=== PATIENT | male | born 1945 | race Caucasian/White ===

== ENCOUNTER 2021-07-10 08:41 | Inpatient (IN) | payer OTHER ==
[~2021-07-10] VITALS: Ht 195.6 cm; Wt 81.2 kg
--- NOTE | 2021-07-10 08:45 | NUR ---
REceved pt 76 yrs male came by pramdic awake and alert fallow command respiration spont and easy skin warm and dry c/o dizzness this morning EKG DONE seen by DR Walden
--- NOTE | 2021-07-10 08:47 | NUR ---
PT UNABLE TO PROVIDE URINE SAMPLE AT THIS TIME, URINAL PROVIDED AT BEDSIDE. WILL ENCOURAGE PT TO TRY AGAIN LATER.
[2021-07-10] MEDS ORDERED: IV NS 0.9% 500 ML BAG IV ONE (09:00)
[2021-07-10] MEDS ORDERED: DULO30CA52 PO (09:10)
[2021-07-10] MEDS ORDERED: BENA10TA74 PO (09:10)
[2021-07-10] MEDS ORDERED: AMLO-212 PO (09:10)
[2021-07-10] MEDS ORDERED: TERA10CA4 PO (09:10)
[2021-07-10] MEDS ORDERED: MIRT7.5T10 PO (09:10)
--- NOTE | 2021-07-10 09:17 | NUR ---
RAPID COVID TEST COLLECTED AND SENT
--- NOTE | 2021-07-10 09:17 | NUR ---
LAB AT BEDSIDE
--- NOTE | 2021-07-10 09:32 | NUR ---
blood drow by lab tach Ct scan was done
[2021-07-10 09:42] LABS: BASOPHILS # (AUTO) 0.1 K/uL (0.0-0.2); BASOPHILS % (AUTO) 0.8 % (0.0-2.0); EOSINOPHILS % (AUTO) 1.4 % (0.0-6.0); HEMATOCRIT 43 % (39-51); HEMOGLOBIN 14.3 g/dL (13.5-17.5); LYMPHOCYTES # (AUTO) 1.3 K/uL (0.8-4.8); LYMPHOCYTES % (AUTO) 16.1 % (20.0-44.0); MEAN CORPUSCULAR HGB CONC 33 g/dl (31.0-36.0); MEAN CORPUSCULAR VOLUME 92 fL (80-96); MONOCYTES # (AUTO) 0.7 K/uL (0.1-1.30); MONOCYTES % (AUTO) 9.1 % (2.0-12.0); NEUTROPHILS # (AUTO) 5.9 K/uL (1.8-8.9); NEUTROPHILS % (AUTO) 72.6 % (43.0-81.0); PLATELET COUNT (AUTO) 193 K/uL (150-450); RED BLOOD CELL COUNT(AUTO) 4.69 MIL/uL (4.5-6.0)
[2021-07-10 10:07] LABS: ALANINE AMINOTRANSFERASE 13 U/L (12-78); ALBUMIN 3.4 g/dL (3.4-5.0); ALKALINE PHOSPHATASE 57 U/L (46-116); ASPARTATE AMINOTRANSFERASE 12 U/L (15-37); BILIRUBIN,DIRECT 0.2 mg/dL (0.0-0.2); BILIRUBIN,TOTAL 0.8 mg/dL (0.2-1.0); CALCIUM, SERUM 9.2 mg/dL (8.5-10.1); CARBON DIOXIDE 28 mmol/L (21-32); CHLORIDE 107 mmol/L (98-107); GLUCOSE 136 mg/dL (74-106); POTASSIUM 3.2 mmol/L (3.5-5.1); SODIUM SERUM 148 mmol/L (136-145); TOTAL PROTEIN, SERUM 7.1 g/dL (6.4-8.2); UREA NITROGEN, BLOOD 15 mg/dL (7-18)
--- NOTE | 2021-07-10 10:18 | NUR ---
URINE WAS COLLECTED AND SENT
[2021-07-10 10:35] LABS: BILIRUBIN,URINE MODERATE (NEGATIVE); COLOR,URINE YELLOW (YELLOW); LEUKOCYTE ESTERASE ,URINE NEGATIVE (NEGATIVE); NITRITE, URINE NEGATIVE (NEGATIVE); PROTEIN,URINE 30 mg/dl (NEGATIVE); UGLUCOSE NEGATIVE (NEGATIVE)
--- NOTE | 2021-07-10 10:39 | NUR ---
ADMITTING DEPARTMENT CALLED [facility] SINCE [phone] TODAY AND WAS NOTIFIED THAT THE INSURANCE GROUP HAS NOT BEEN ANSWERING THE MESSAGES. AWAITING TILL 1099 FOR AUTHORIZATION
[2021-07-10 10:59] LABS: WBC,URINE NONE SEEN /HPF (0-3)
[2021-07-10 11:00] LABS: BACTERIA,URINE Rare /HPF (None Seen); RBC,URINE 0-2 /HPF (0-2); SQUAMOUS EPITHELIAL CELL,UR None Seen /HPF (None Seen)
[2021-07-10 11:01] LABS: CALCIUM OXALATE CRYSTALS,UR Rare /HPF (None Seen)
--- NOTE | 2021-07-10 11:43 | NUR ---
CALLED NURSING SUP REGARDING PT BED
--- NOTE | 2021-07-10 12:39 | NUR ---
wating for lab result resting no dizzness noted
--- NOTE | 2021-07-10 13:17 | NUR ---
ivf infution and patent no chest pain no dizzness elevated HOB 45@
[2021-07-10] MEDS ORDERED: IV D5W 1,000 ML IV PRN (13:30)
[2021-07-10] MEDS ORDERED: ONDANSETRON HCL/PF 4 MG/2 ML VIAL IVP PRN (13:30)
[2021-07-10] MEDS ORDERED: MAGNESIUM HYDROXIDE 30 ML UDC PO PRN (13:30)
--- NOTE | 2021-07-10 14:26 | NUR ---
hosptalist here see and examin pt spook with admition order was given
--- NOTE | 2021-07-10 16:16 | NUR ---
wating for room vs stable no govea no pain noted
[2021-07-10] MEDS ORDERED: Z GUARD REMEDY 4 OZ OINT TP PRN (17:00)
[2021-07-10] MEDS ORDERED: POTASSIUM CHLORIDE 10 MEQ TABLET.SA PO ONE (17:00)
[2021-07-10] MEDS: PANTOPRAZOLE 40 MG TABLET.DR PO SCH (17:01)
[2021-07-10] MEDS ORDERED: POTASSIUM CHLORIDE 10 MEQ TABLET.SA ONE (17:01)
[2021-07-10] MEDS ORDERED: PANTOPRAZOLE 40 MG TABLET.DR PO ONE (17:18)
[2021-07-10] MEDS: IV NS 0.9% 1,000 ML IV PRN ×2 (18:00→19:32)
--- NOTE | 2021-07-10 18:30 | NUR ---
pt no voiding no post bladder resdule checked
--- NOTE | 2021-07-10 19:00 | NUR ---
orth static done pt week unable to stand up for standing postion
--- NOTE | 2021-07-10 19:27 | NUR ---
Hand off to SHIRLEY RN AT BED SIDE
--- NOTE | 2021-07-10 19:47 | NUR ---
RECEIVED REPORT FROM QIAN PEARL FOR MYNOR
--- NOTE | 2021-07-10 19:48 | NUR ---
PT IS RESTING COMFORTABLY IN BED, PROVIDED WARM BLANKET. WILL CONTINUE TO MONITOR
--- NOTE | 2021-07-10 19:55 | NUR ---
REPORT GIVEN TO HAO
--- NOTE | 2021-07-10 20:16 | NUR ---
TRANSFERRED TO THIRD FLOOR UNDER ACLS
--- NOTE | 2021-07-10 21:00 | NUR ---
RN ADMITTING NOTE PATIENT ADMITTED FROM ER, REPORT RECEIVED FROM TERRENCE. PER PATIENT, HE'S HERE BECAUSE HE FELL THIS MORNING. PATIENT ADMITTED FOR SYNCOPE, AMS, AND ABNORMAL EKG. PATIENT IS A/O X 2-3 AT THIS TIME. PATIENT IS HARD OF HEARING ON BOTH R AND L EARS, DOES NOT WEAR ANY HEARING AIDS. PATIENT HAS A LAC 18 G PATENT AND INTACT RUNNING NS AT 100 ML/HR. PATIENT'S TELE MONITOR READS SR 86 BPM SR WITH PAC AND INVERTED T WAVE. PATIENT CANNOT DECIDE REGARDING HIS CODE STATUS AND WOULD LIKE FOR HIS MILDRED ([phone]) TO DECIDE. WISHES PATIENT TO BE FULL CODE. ALSO STATES THAT PATIENT HAS NOT BEEN EATING WELL AND LOST WEIGHT AND WITH INCREASED CONFUSED SINCE [place] MAY 2021 HOSPITALIZATION. PER , PATIENT ALSO HAS NOT BEEN URINATING AND HAS BEEN HAVING A LOT OF PAIN D/T PATIENT HOLDING IN URINE. WILL ASSESS PATIENT'S URINATION AND BOWEL PATTERNS. PATIENT DOES NOT HAVE ANY COVID VACCINATIONS AND DOES NOT WANT ANY IMMUNIZATIONS AT THIS TIME. PATIENT DOES NOT WANT TO WEAR PATIENT GOWN, SKIN INTACT. ORIENTED PATIENT TO RM, RN , AND INVESTMENT ACCOUNTING CLERK. BED LOCKED AND IN LOWEST POSITION. CALL LIGHT WITHIN REACH, SIDE RAILS UP, BED ALARM ON. WILL MONITOR PATIENT CLOSELY.
[2021-07-10 21:10] VITALS: BP 159/90
[2021-07-11] VITALS: BP 156/81
--- NOTE | 2021-07-11 | NUR ---
ORTHOSTATIC BP SUPINE: BP 156/81 HR 84 SITTING: BP 145/85 HR 86 STANDIN/73 HR 103 Addendum: 07/11/21 at 0350 by DIANNE MORSE RN NO DIZZINESS REPORTED BY PATIENT.
--- NOTE | 2021-07-11 04:00 | NUR ---
BLADDER SCAN 220, VOID 200 ML, PVR 34
[2021-07-11 05:09] VITALS: BP 164/90
[2021-07-11 06:29] LABS: BASOPHILS # (AUTO) 0.1 K/uL (0.0-0.2); BASOPHILS % (AUTO) 0.9 % (0.0-2.0); EOSINOPHILS % (AUTO) 3.4 % (0.0-6.0); HEMATOCRIT 38 % (39-51); HEMOGLOBIN 12.9 g/dL (13.5-17.5); LYMPHOCYTES # (AUTO) 1.7 K/uL (0.8-4.8); LYMPHOCYTES % (AUTO) 25.9 % (20.0-44.0); MEAN CORPUSCULAR HGB CONC 34 g/dl (31.0-36.0); MEAN CORPUSCULAR VOLUME 92 fL (80-96); MONOCYTES # (AUTO) 0.6 K/uL (0.1-1.30); MONOCYTES % (AUTO) 9.8 % (2.0-12.0); PLATELET COUNT (AUTO) 169 K/uL (150-450); RED BLOOD CELL COUNT(AUTO) 4.17 MIL/uL (4.5-6.0); WHITE BLOOD COUNT (AUTO) 6.6 K/uL (4.3-11.0)
[2021-07-11] MEDS: IV NS 0.9% 1,000 ML IV PRN (06:54)
[2021-07-11 07:14] LABS: CALCIUM, SERUM 8.9 mg/dL (8.5-10.1); CREATININE 0.8 mg/dL (0.6-1.3); MAGNESIUM 1.8 mg/dL (1.8-2.4); PHOSPHORUS 2.8 mg/dL (2.5-4.9); POTASSIUM 3.1 mmol/L (3.5-5.1)
--- NOTE | 2021-07-11 07:25 | NUR ---
RN OPENING NOTE RECEIVED PATIENT RESTING IN BED. PATIENT IS A/O X 2-3 AT THIS TIME. PATIENT IS HARD OF HEARING ON BOTH R AND L EARS, DOES NOT WEAR ANY HEARING AIDS. PATIENT IS BREATHING EVENLY AND NONLABORED ON ROOM AIR. PATIENT HAS A LAC 18 G PATENT AND INTACT RUNNING NS AT 100 ML/HR. PATIENT'S TELE MONITOR READS SR 86 BPM SR WITH PAC AND INVERTED T WAVE. SAFETY MEASURES IN PLACE BED LOCKED AND IN LOWEST POSITION. CALL LIGHT WITHIN REACH, SIDE RAILS UP, BED ALARM ON. WILL CONTINUE TO MONITOR PATIENT
[2021-07-11] MEDS: PANTOPRAZOLE 40 MG TABLET.DR PO SCH (07:38)
[2021-07-11 08:00] VITALS: BP 151/84
[2021-07-11 08:34] LABS: THYROID STIMULATING HORMONE 2.425 uIU/mL (0.358-3.74)
[2021-07-11] MEDS: AMLODIPINE BESYLATE 5 MG TABLET PO SCH (09:19)
[2021-07-11] MEDS: POTASSIUM CHLORIDE 20 MEQ TAB.PRT.SR PO SCH ×2 (10:03→11:28)
[2021-07-11 16:00] VITALS: BP 164/88
[2021-07-11] MEDS: TERAZOSIN HCL 5 MG CAPSULE PO SCH (17:18)
--- NOTE | 2021-07-11 18:35 | NUR ---
RN CLOSING NOTE PATIENT RESTING IN BED. PATIENT IS A/O X 2-3 AT THIS TIME. PATIENT IS HARD OF HEARING ON BOTH R AND L EARS, DOES NOT WEAR ANY HEARING AIDS. PATIENT IS BREATHING EVENLY AND NONLABORED ON ROOM AIR. PATIENT HAS A LAC 18 G PATENT AND INTACT RUNNING NS AT 100 ML/HR. PATIENT'S TELE MONITOR READS SR 86 BPM SR WITH PAC AND INVERTED T WAVE. ALL MEDICATIONS GIVEN ORDERED. SAFETY MEASURES IN PLACE BED LOCKED AND IN LOWEST POSITION. CALL LIGHT WITHIN REACH, SIDE RAILS UP, BED ALARM ON. WILL ENDORSE TO ONCOMING SHIFT
--- NOTE | 2021-07-11 19:22 | NUR ---
RN OPENING NOTE PATIENT LAYING IN BED, ABLE TO MAKE NEEDS KNOWN. PATIENT IS A/O X 2-3 AT THIS TIME. PATIENT IS HARD OF HEARING ON BOTH R AND L EARS. PATIENT ON RA, TOLERATING WELL, BREATHING EVEN AND UNLABORED. PATIENT HAS A LAC 18 G PATENT AND INTACT, SALINE LOCKED AT THIS TIME. PATIENT DOES NOT WANT IVF RUNNING AT THIS TIME. PATIENT IS DRINKING FLUIDS WELL. PATIENT'S TELE MONITOR READS SR 90 BPM SR WITH PAC AND INVERTED T WAVE. SAFETY MEASURES IN PLACE BED LOCKED AND IN LOWEST POSITION. CALL LIGHT WITHIN REACH, SIDE RAILS UP, BED ALARM ON. WILL CONTINUE TO MONITOR PATIENT
[2021-07-11 20:00] VITALS: BP 151/94
[2021-07-12] VITALS: BP 158/91
--- NOTE | 2021-07-12 07:18 | NUR ---
RN CLOSING NOTE PATIENT LAYING IN BED, ABLE TO MAKE NEEDS KNOWN. PATIENT IS A/O X 2-3, WITH PERIODS OF CONFUSION THROUGHOUT THE SHIFT. PATIENT IS HARD OF HEARING ON BOTH R AND L EARS. PATIENT ON RA, TOLERATING WELL, BREATHING EVEN AND UNLABORED. PATIENT HAS A LAC 18 G PATENT AND INTACT, SALINE LOCKED AT THIS TIME. PATIENT DOES NOT WANT IVF RUNNING HE FEELS THAT THERE IS "PRESSURE" AND DOES NOT LIKE THE FEELING, PATIENT STATES THAT THERE IS NO PAIN ON IV SITE. PATIENT IS DRINKING FLUIDS WELL. PATIENT'S TELE MONITOR READS SR 70 BPM SR WITH PAC AND INVERTED T WAVE. SAFETY MEASURES IN PLACE BED LOCKED AND IN LOWEST POSITION. CALL LIGHT WITHIN REACH, SIDE RAILS UP, BED ALARM ON. ALL NEEDS MET AND ATTENDED. ALL ORDERS CARRIED OUT. ENDORSED TO DAY SHIFT NURSE FOR MYNOR.
[2021-07-12 08:00] VITALS: BP 152/84
[2021-07-12] MEDS: PANTOPRAZOLE 40 MG TABLET.DR PO SCH (09:27)
[2021-07-12] MEDS: AMLODIPINE BESYLATE 5 MG TABLET PO SCH (09:27)
[2021-07-12 12:00] VITALS: BP 148/77
[2021-07-12 12:44] LABS: BASOPHILS % (AUTO) 0.6 % (0.0-2.0); EOSINOPHILS % (AUTO) 4.5 % (0.0-6.0); HEMATOCRIT 42 % (39-51); HEMOGLOBIN 14.4 g/dL (13.5-17.5); LYMPHOCYTES # (AUTO) 1.9 K/uL (0.8-4.8); LYMPHOCYTES % (AUTO) 24.9 % (20.0-44.0); MEAN CORPUSCULAR HGB CONC 34 g/dl (31.0-36.0); MEAN CORPUSCULAR VOLUME 92 fL (80-96); MONOCYTES # (AUTO) 0.6 K/uL (0.1-1.30); MONOCYTES % (AUTO) 8.4 % (2.0-12.0); NEUTROPHILS # (AUTO) 4.7 K/uL (1.8-8.9); NEUTROPHILS % (AUTO) 61.6 % (43.0-81.0); PLATELET COUNT (AUTO) 176 K/uL (150-450); RED BLOOD CELL COUNT(AUTO) 4.61 MIL/uL (4.5-6.0); WHITE BLOOD COUNT (AUTO) 7.7 K/uL (4.3-11.0)
[2021-07-12 13:12] LABS: CREATININE 0.9 mg/dL (0.6-1.3); POTASSIUM 3.2 mmol/L (3.5-5.1)
--- NOTE | 2021-07-12 13:33 | NUR ---
VERBALIZING INAPPROPRIATE THINGS,VERY CONFUSED.
[2021-07-12 13:46] LABS: PREALBUMIN 19.3 MG/DL (18.0-35.7)
[2021-07-12] MEDS ORDERED: POTASSIUM CHLORIDE 20 MEQ TAB.PRT.SR PO ONE (14:00)
--- NOTE | 2021-07-12 14:19 | NUR ---
GIVEN KDUR 40 MEQ.PO FOR 3.2 POTASSIUM LEVEL.
--- NOTE | 2021-07-12 15:27 | NUR ---
rn dialed 's number for pt.very confused.
--- NOTE | 2021-07-12 15:31 | NUR ---
bed alarm set continually,though pt. dislikes.
[2021-07-12 16:00] VITALS: BP 136/79
--- NOTE | 2021-07-12 16:00 | NUR ---
rn spoke with and given no. of dr. ramires,although rn gave status report on pt.
--- NOTE | 2021-07-12 16:29 | NUR ---
refusing iv fluids.
[2021-07-12] MEDS: TERAZOSIN HCL 5 MG CAPSULE PO SCH (17:53)
--- NOTE | 2021-07-12 19:35 | NUR ---
TELE OPENING NOTES RECEIVED PATIENT LAYING AWAKE IN BED. A/O X2-3. PATIENT WITH REGULAR AND UNLABORED BREATHING ON ROOM AIR TOLERATED WELL. NO SIGNS AND SYMPTOMS OF DISTRESS NOTED AT THIS TIME. NO COMPLAINS OF PAIN OR DISCOMFORT AT THIS TIME. PATIENT ON TELE MONITOR READING SR WITH INVERTED T WAVE @ 85 BPM. IV ACCESS LAC G #18 SL. IV ACCESS PATENT AND INTACT. SAFETY PRECAUTIONS ENFORCED WITH BED LOCKED AND AT LOWEST POSITION. CALL LIGHT WITHIN REACH AT ALL TIMES. WILL CONTINUE TO MONITOR PATIENT.
[2021-07-12 20:00] VITALS: BP 144/90
--- NOTE | 2021-07-12 20:00 | NUR ---
COO NOTES PATIENT REFUSED IV FLUIDS. EXPLAINED RISKS AND BENEFITS. PATIENT STILL REFUSED. WILL CONTINUE TO MONITOR PATIENT.
[2021-07-13] VITALS: BP 140/88
[2021-07-13 04:00] VITALS: BP 147/87
--- NOTE | 2021-07-13 06:40 | NUR ---
SALES SERVICE TECHNICIAN CLOSING NOTES PATIENT STILL LAYING AWAKE IN BED. A/O X2-3. PATIENT WITH REGULAR AND UNLABORED BREATHING ON ROOM AIR TOLERATED WELL. NO SIGNS AND SYMPTOMS OF DISTRESS NOTED AT THIS TIME. NO COMPLAINS OF PAIN OR DISCOMFORT AT THIS TIME. PATIENT ON TELE MONITOR READING SR @ 76 BPM. IV ACCESS LAC G #18 SL. IV ACCESS PATENT AND INTACT. SAFETY PRECAUTIONS ENFORCED WITH BED LOCKED AND AT LOWEST POSITION. CALL LIGHT WITHIN REACH AT ALL TIMES. WILL ENDORSE CONTINUITY OF CARE TO DAY SHIFT NURSE.
--- NOTE | 2021-07-13 07:52 | NUR ---
LOADING SHOVEL OILER OPENING NOTES RECEIVED PATIENT LAYING AWAKE IN BED. A/O X2. PATIENT WITH REGULAR AND UNLABORED BREATHING ON ROOM AIR TOLERATED WELL. NO SIGNS AND SYMPTOMS OF DISTRESS NOTED AT THIS TIME. NO COMPLAINS OF PAIN OR DISCOMFORT AT THIS TIME. PATIENT ON TELE MONITOR READING SR @ 94 BPM WITH PAC AND OCCASIONAL PVC. IV ACCESS LAC G #18 SL. IV ACCESS PATENT AND INTACT. SAFETY PRECAUTIONS IN PLACE; BED IN LOW POSITION AND LOCKED, RAILS UP X2, CALL LIGHT WITHIN REACH. WILL CONTINUE TO MONITOR PATIENT.
[2021-07-13 08:00] VITALS: BP 136/93
[2021-07-13] MEDS: PANTOPRAZOLE 40 MG TABLET.DR PO SCH (08:18)
[2021-07-13] MEDS: AMLODIPINE BESYLATE 5 MG TABLET PO SCH (08:18)
[2021-07-13 09:42] LABS: BASOPHILS % (AUTO) 0.7 % (0.0-2.0); EOSINOPHILS % (AUTO) 4.5 % (0.0-6.0); HEMATOCRIT 38 % (39-51); HEMOGLOBIN 12.9 g/dL (13.5-17.5); LYMPHOCYTES # (AUTO) 1.1 K/uL (0.8-4.8); LYMPHOCYTES % (AUTO) 21.5 % (20.0-44.0); MEAN CORPUSCULAR HGB CONC 34 g/dl (31.0-36.0); MEAN CORPUSCULAR VOLUME 91 fL (80-96); MONOCYTES # (AUTO) 0.5 K/uL (0.1-1.30); NEUTROPHILS # (AUTO) 3.3 K/uL (1.8-8.9); NEUTROPHILS % (AUTO) 64.3 % (43.0-81.0); PLATELET COUNT (AUTO) 155 K/uL (150-450); RED BLOOD CELL COUNT(AUTO) 4.17 MIL/uL (4.5-6.0); WHITE BLOOD COUNT (AUTO) 5.2 K/uL (4.3-11.0)
[2021-07-13 09:52] LABS: CALCIUM, SERUM 8.6 mg/dL (8.5-10.1); CREATININE 0.9 mg/dL (0.6-1.3); POTASSIUM 3.1 mmol/L (3.5-5.1)
[2021-07-13 12:00] VITALS: BP 132/73
[2021-07-13 16:00] VITALS: BP 127/78
[2021-07-13] MEDS: TERAZOSIN HCL 5 MG CAPSULE PO SCH (17:09)
--- NOTE | 2021-07-13 18:42 | NUR ---
SENIOR TECHNICAL SPECIALIST CLOSING NOTES PATIENT REMAINS LAYING AWAKE IN BED. A/O X2. PATIENT WITH REGULAR AND UNLABORED BREATHING ON ROOM AIR TOLERATED WELL. NO SIGNS AND SYMPTOMS OF DISTRESS NOTED DURING THE DAY. NO COMPLAINS OF PAIN OR DISCOMFORT AT THIS TIME. PATIENT ON TELE MONITOR READING SR TO ST 106 BPM WITH PAC AND OCCASIONAL PVC. IV ACCESS LAC G #18 SL. IV ACCESS PATENT AND INTACT. ALL NEEDS ATTENDED DURING THE DAY. SAFETY PRECAUTIONS IN PLACE; BED IN LOW POSITION AND LOCKED, RAILS UP X2, CALL LIGHT WITHIN REACH. WILL ENDORSE TO EDUCATION SALES CONSULTANT NURSE FOR MYNOR.
--- NOTE | 2021-07-13 19:50 | NUR ---
TAPE CONTROL SKIN OR SPAR MILL OPERATOR NOTE PATIENT IN BED AWAKE. A/OX1-2. NO S/S OF DISTRESS, BREATHING ON RM AIR. LAC 18# INTACT AND PATENT W/ NS 100ML/HR - PATIENT HAS BEEN DECLINING USE OF IV, SO WILL ENCOURAGE TO RESUME IV USE AGAIN. TELE MONITOR REVEALS ST 105. SAFETY MEASURES IN PLACE: BED AT LOWEST POSITION, LOCKED, RAILS UP X3, CALL FOLEY WITHIN REACH. WILL CONTINUE TO MONITOR PATIENT.
[2021-07-13 20:00] VITALS: BP 145/80
[2021-07-14] VITALS: BP 129/64
[2021-07-14 04:00] VITALS: BP 135/58
--- NOTE | 2021-07-14 06:29 | NUR ---
RN CLOSING NOTE PATIENT ASLEEP IN BED. A/OX2. NO S/S OF DISTRESS; BREATHING UNLABORED ON RM AIR. PATIENT HAS IV ACCESS AND IVF ORDERED BUT CONTINUES TO REFUSE HAVING IT ADMINISTERED. WILL ATTEMPT TO CONVINCE PATIENT AGAIN BEFORE CHANGE OF SHIFT. TELE MONITOR REVEALS SR 68 W/ PACs AND PVCs. SAFETY MEASURES IN PLACE: BED AT LOWEST POSITION, BED LOCKED, RAILS UP X3, CALL FOLEY WITHIN REACH. WILL ENDORSE TO NEXT SHIFT FOR MYNOR.
[2021-07-14 06:43] LABS: BASOPHILS % (AUTO) 0.6 % (0.0-2.0); HEMATOCRIT 34 % (39-51); HEMOGLOBIN 11.8 g/dL (13.5-17.5); LYMPHOCYTES # (AUTO) 1.5 K/uL (0.8-4.8); LYMPHOCYTES % (AUTO) 26.5 % (20.0-44.0); MEAN CORPUSCULAR HGB CONC 35 g/dl (31.0-36.0); MEAN CORPUSCULAR VOLUME 91 fL (80-96); MONOCYTES # (AUTO) 0.5 K/uL (0.1-1.30); MONOCYTES % (AUTO) 9.6 % (2.0-12.0); NEUTROPHILS # (AUTO) 3.3 K/uL (1.8-8.9); NEUTROPHILS % (AUTO) 58.3 % (43.0-81.0); PLATELET COUNT (AUTO) 147 K/uL (150-450); RED BLOOD CELL COUNT(AUTO) 3.76 MIL/uL (4.5-6.0); WHITE BLOOD COUNT (AUTO) 5.6 K/uL (4.3-11.0)
[2021-07-14 07:11] LABS: CALCIUM, SERUM 8.6 mg/dL (8.5-10.1); CREATININE 0.9 mg/dL (0.6-1.3)
--- NOTE | 2021-07-14 07:20 | NUR ---
ms rn received on bed, awake,alert,oriented x2-3,not in anyf orm of distress, respirations even and unlabored,no sob noted, lungs diminished,abdomen soft,positive bowel sounds. denies at this time,all needs attended.
[2021-07-14 08:00] VITALS: BP 155/92
--- NOTE | 2021-07-14 09:00 | NUR ---
ms [place] breakfast served,due meds given,tolerated well.
[2021-07-14] MEDS: PANTOPRAZOLE 40 MG TABLET.DR PO SCH (09:04)
[2021-07-14] MEDS: AMLODIPINE BESYLATE 5 MG TABLET PO SCH (09:06)
[2021-07-14] MEDS: POTASSIUM CL. PREMIX PERIPHER. 50 ML IV SCH ×3 (09:08→11:25)
[2021-07-14 12:00] VITALS: BP 144/85
[2021-07-14] MEDS ORDERED: POTASSIUM CHLORIDE 10 MEQ TABLET.SA PO ONE (13:00)
--- NOTE | 2021-07-14 15:00 | NUR ---
ms rn patient refused mri of brain,will notify dr. ramires.
--- NOTE | 2021-07-14 15:34 | NUR ---
ms rn on bed, all needs attended.
[2021-07-14 16:00] VITALS: BP 146/85
--- NOTE | 2021-07-14 18:11 | NUR ---
ms rn patient on bed, all needs attended.
[2021-07-14] MEDS: TERAZOSIN HCL 5 MG CAPSULE PO SCH (18:57)
[2021-07-14 20:00] VITALS: BP 145/85
--- NOTE | 2021-07-14 20:00 | NUR ---
PROFESSOR OF LAW OPENING NOTES: RECEIVED PATIENT SLEEP IN BED COMFORTABLY, AROUSABLE TO VERBAL STIMULI, BED IN LOW POSITION, CALL LIGHTS WITHIN REACH, NO COMPLAIN OF PAIN AND DISCOMFORT AT THIS TIME, ,PATIENT IS A/O X2 WITH EPISODE OF CONFUSION, ON TELE MONITORING SR-88 WITH PVC. PATIENT WITH IV LINE AT LAC#18 WITH ONGOING NSS @100ML PER HOUR INFUSING WELL, PATIENT KEPT CLEAN AND DRY ALL NEEDS MET WILL CONTINUE TO MONITOR.
[2021-07-14] MEDS: ACETAMINOPHEN 325 MG TABLET PO PRN (21:11)
[2021-07-15] VITALS: BP 134/88
[2021-07-15 04:00] VITALS: BP 134/79
--- NOTE | 2021-07-15 06:06 | NUR ---
GENERATOR MAN CLOSING NOTES: PATIENT SLEEP IN BEB COMFORTABLY, BED IN LOW POSITION,CALL LIGHTS WITHIN REACH, NO COMPLAIN OF PAIN AND DISCOMFORT AT THIS TIME, ON ROOM AIR SATURATING WELL, NO SOB WAS OBSERVED, ON TELE MONITORING, S WITH 1ST DEGREE AV BLOCK NO SYMPTOMS WAS OBSERVED, WITH IV LINE AT LEFT LFA #20 WITH NSS @100ML PER HOUR INFUSING WELL, PATIENT KEPT CLEAN AND DRY ALL NEEDS MET ENDORSE TO INCOMING SHIFT.
[2021-07-15 06:58] LABS: BASOPHILS % (AUTO) 0.4 % (0.0-2.0); EOSINOPHILS % (AUTO) 4.2 % (0.0-6.0); HEMATOCRIT 35 % (39-51); HEMOGLOBIN 11.9 g/dL (13.5-17.5); LYMPHOCYTES # (AUTO) 1.4 K/uL (0.8-4.8); LYMPHOCYTES % (AUTO) 27.7 % (20.0-44.0); MEAN CORPUSCULAR HGB CONC 34 g/dl (31.0-36.0); MEAN CORPUSCULAR VOLUME 92 fL (80-96); MONOCYTES # (AUTO) 0.5 K/uL (0.1-1.30); MONOCYTES % (AUTO) 8.9 % (2.0-12.0); NEUTROPHILS % (AUTO) 58.8 % (43.0-81.0); PLATELET COUNT (AUTO) 155 K/uL (150-450); RED BLOOD CELL COUNT(AUTO) 3.83 MIL/uL (4.5-6.0); WHITE BLOOD COUNT (AUTO) 5.2 K/uL (4.3-11.0)
[2021-07-15 07:09] LABS: CALCIUM, SERUM 8.3 mg/dL (8.5-10.1); CARBON DIOXIDE 26 mmol/L (21-32); CHLORIDE 107 mmol/L (98-107); CREATININE 0.8 mg/dL (0.6-1.3); GLUCOSE 99 mg/dL (74-106); POTASSIUM 3.4 mmol/L (3.5-5.1); SODIUM SERUM 139 mmol/L (136-145); UREA NITROGEN, BLOOD 11 mg/dL (7-18)
[2021-07-15] MEDS: PANTOPRAZOLE 40 MG TABLET.DR PO SCH (07:38)
--- NOTE | 2021-07-15 07:55 | NUR ---
ms rn received on bed, awake,alert,oriented x2,not in any form of distress, respirations even and unlabored,no sob noted, will monitor patient.
[2021-07-15 08:00] VITALS: BP 131/86
[2021-07-15] MEDS ORDERED: POTASSIUM CL. PREMIX PERIPHER. 50 ML IV SCH (08:30)
[2021-07-15] MEDS ORDERED: POTASSIUM CHLORIDE 10 MEQ TABLET.SA PO ONE (09:30)
--- NOTE | 2021-07-15 09:39 | NUR ---
ms [place] breakfast served,due meds given, tolerated well.
[2021-07-15] MEDS: AMLODIPINE BESYLATE 5 MG TABLET PO SCH (10:46)
[2021-07-15] MEDS: IV NS 0.9% 1,000 ML IV PRN (11:38)
[2021-07-15 16:00] VITALS: BP 163/81
--- NOTE | 2021-07-15 16:00 | NUR ---
ms rn went down for mri.
[2021-07-15] MEDS: TERAZOSIN HCL 5 MG CAPSULE PO SCH (18:27)
--- NOTE | 2021-07-15 18:43 | NUR ---
ms rn on bed, all needs attended, no distress noted.
--- NOTE | 2021-07-15 19:35 | NUR ---
MS RN OPENING NOTES RECEIVED PATIENT LAYING AWAKE IN BED. A/O X2. PATIENT WITH REGULAR AND UNLABORED BREATHING ON ROOM AIR, TOLERATED WELL. NO SIGNS AND SYMPTOMS OF DISTRESS NOTED AT THIS TIME. NO COMPLAINS OF PAIN OR DISCOMFORT AT THIS TIME. IV ACCESS LFA G #20 . IV ACCESS PATENT AND INTACT. SAFETY PRECAUTIONS ENFORCED WITH BED LOCKED AND AT LOWEST POSITION. SIDERAILS UP X2. CALL LIGHT WITHIN REACH AT ALL TIMES. WILL CONTINUE TO MONITOR PATIENT.
[2021-07-15 20:00] VITALS: BP 139/82
[2021-07-15] MEDS: ACETAMINOPHEN 325 MG TABLET PO PRN (21:27)
--- NOTE | 2021-07-15 21:28 | NUR ---
MS RN NOTES PATIENT COMPLAINED OF PAIN. ADMINISTERED TYLENOL ORDERED BY HOSPITALIST. WILL CONTINUE TO MONITOR PATIENT.
[2021-07-16 06:32] LABS: CALCIUM, SERUM 8.7 mg/dL (8.5-10.1); CARBON DIOXIDE 27 mmol/L (21-32); CHLORIDE 103 mmol/L (98-107); CREATININE 0.8 mg/dL (0.6-1.3); GLUCOSE 97 mg/dL (74-106); POTASSIUM 3.3 mmol/L (3.5-5.1); SODIUM SERUM 134 mmol/L (136-145); UREA NITROGEN, BLOOD 9 mg/dL (7-18)
--- NOTE | 2021-07-16 06:39 | NUR ---
MS RN CLOSING NOTES PATIENT STILL LAYING AWAKE IN BED. A/O X2. PATIENT WITH REGULAR AND UNLABORED BREATHING ON ROOM AIR, TOLERATED WELL. NO SIGNS AND SYMPTOMS OF DISTRESS NOTED AT THIS TIME. NO COMPLAINS OF PAIN OR DISCOMFORT AT THIS TIME. IV ACCESS LFA G #20 INFUSING NS @ 100 ML/HR . IV ACCESS PATENT AND INTACT. SAFETY PRECAUTIONS ENFORCED WITH BED LOCKED AND AT LOWEST POSITION. SIDERAILS UP X2. CALL LIGHT WITHIN REACH AT ALL TIMES. WILL ENDORSE CONTINUITY OF CARE TO DAY SHIFT NURSE.
[2021-07-16 06:49] LABS: BASOPHILS % (AUTO) 0.8 % (0.0-2.0); EOSINOPHILS % (AUTO) 5.1 % (0.0-6.0); HEMATOCRIT 36 % (39-51); HEMOGLOBIN 12.2 g/dL (13.5-17.5); LYMPHOCYTES # (AUTO) 1.5 K/uL (0.8-4.8); LYMPHOCYTES % (AUTO) 29.7 % (20.0-44.0); MEAN CORPUSCULAR HGB CONC 34 g/dl (31.0-36.0); MEAN CORPUSCULAR VOLUME 91 fL (80-96); MONOCYTES # (AUTO) 0.5 K/uL (0.1-1.30); MONOCYTES % (AUTO) 9.4 % (2.0-12.0); NEUTROPHILS # (AUTO) 2.8 K/uL (1.8-8.9); PLATELET COUNT (AUTO) 155 K/uL (150-450); RED BLOOD CELL COUNT(AUTO) 3.94 MIL/uL (4.5-6.0); WHITE BLOOD COUNT (AUTO) 5.2 K/uL (4.3-11.0)
--- NOTE | 2021-07-16 07:14 | NUR ---
MS RN OPENING NOTES RECEIVED PATIENT ASLEEP IN BED. EASILY AWAKEN UPON CALL. A/O X2. ON RA. TOLERATING WELL. BREATHING EVEN AND UNLABORED. NOT ANY SIGN OF RESPIRATORY DISTRESS NOTED AT THIS TIME. IV ACCESS LFA G #20 INTACT AND PATENT WITH NS INFUSING @ 100 ML/HR. SAFETY MEASURES IN PLACE: BED AT LOWEST AND LOCKED POSITION, BED ALARM ON, SIDE RAILS UP X2. CALL LIGHT WITHIN REACH AT ALL TIMES. WILL CONTINUE TO MONITOR PATIENT.
[2021-07-16] MEDS: PANTOPRAZOLE 40 MG TABLET.DR PO SCH (07:43)
[2021-07-16 08:00] VITALS: BP 141/86
[2021-07-16] MEDS ORDERED: POTASSIUM CHLORIDE 20 MEQ TAB.PRT.SR PO SCH (08:00)
[2021-07-16] MEDS: AMLODIPINE BESYLATE 5 MG TABLET PO SCH (08:38)
--- NOTE | 2021-07-16 08:47 | NUR ---
RN NOTES PT NOTED WITH LOW POTASSIUM 3.3 THIS MORNING, ADMINISTERED K-DUR 20MEQ TAB PO ORDERED.
[2021-07-16] MEDS: IV NS 0.9% 1,000 ML IV PRN (14:40)
[2021-07-16] MEDS: ACETAMINOPHEN 325 MG TABLET PO PRN (14:50)
[2021-07-16 16:00] VITALS: BP 147/84
[2021-07-16] MEDS: TERAZOSIN HCL 5 MG CAPSULE PO SCH (17:27)
[2021-07-16] MEDS: QUETIAPINE FUMARATE 25 MG TABLET PO SCH (17:46)
[2021-07-16] MEDS ORDERED: KETOROLAC TROMETHAMINE INJ 30 MG/ML VIAL IM ONE (18:00)
--- NOTE | 2021-07-16 18:18 | NUR ---
RN NOTES PT COMPLAINED OF GENERALIZED PAIN. MD MADE AWAKE AND ORDERED TO GIVE TORADOL 15MG IM X1 DOSE BUT PT REFUSED.
--- NOTE | 2021-07-16 18:39 | NUR ---
MS RN CLOSING NOTES PATIENT IN BED AWAKE. A/O X2-3 WITH PERIODS OF CONFUSION AND FORGETFULNESS. ON RA. TOLERATING WELL. BREATHING EVEN AND UNLABORED. NOT ANY SIGN OF RESPIRATORY DISTRESS NOTED AT THIS TIME. IV ACCESS LFA G #20 INTACT AND PATENT WITH NS INFUSING @ 100 ML/HR. ALL NEEDS AND CARE PROVIDED TO PT. ENCOURAGED PT TO TURN AND REPOSITION Q2HRS AND NEEDED. ALSO ENCOURAGED PT TO USE THE CALL LIGHT IF ASSISTANCE IS NEEDED. SAFETY MEASURES IN PLACE: BED AT LOWEST AND LOCKED POSITION, BED ALARM ON, SIDE RAILS UP X2. CALL LIGHT WITHIN REACH AT ALL TIMES. WILL ENDORSED TO HAMMERER NURSE.
--- NOTE | 2021-07-16 19:45 | NUR ---
MS RN CLOSING NOTES; RECEIVED PATIENT SLEEP IN BED AROUSABLE TO VERBAL STIMULI, BED IN LOW POSITION, CALL LIGHTS WITHIN REACH, NO COMPLAIN OF PAIN AND DISCOMFORT AT THIS TIME, ON BR, ALERT AND ORIENTED X2-3 WITH EPISODE OF CONFUSION, WITH IV LINE AT LFA#20 WITH ONGOING NSS@100ML PER HOUR INFUSING WELL, PATIENT KEPT CLEAN AND DRY ALL NEEDS MET WILL CONTINUE TO MONITOR.
[2021-07-16 20:00] VITALS: BP 141/84
[2021-07-17] MEDS: IV NS 0.9% 1,000 ML IV PRN ×2 (00:28→13:20)
[2021-07-17 06:08] LABS: BASOPHILS % (AUTO) 0.8 % (0.0-2.0); EOSINOPHILS % (AUTO) 4.6 % (0.0-6.0); HEMATOCRIT 35 % (39-51); LYMPHOCYTES # (AUTO) 1.4 K/uL (0.8-4.8); LYMPHOCYTES % (AUTO) 29.5 % (20.0-44.0); MEAN CORPUSCULAR HGB CONC 34 g/dl (31.0-36.0); MEAN CORPUSCULAR VOLUME 92 fL (80-96); MONOCYTES # (AUTO) 0.4 K/uL (0.1-1.30); MONOCYTES % (AUTO) 9.1 % (2.0-12.0); NEUTROPHILS # (AUTO) 2.7 K/uL (1.8-8.9); PLATELET COUNT (AUTO) 159 K/uL (150-450); RED BLOOD CELL COUNT(AUTO) 3.85 MIL/uL (4.5-6.0); WHITE BLOOD COUNT (AUTO) 4.9 K/uL (4.3-11.0)
--- NOTE | 2021-07-17 06:46 | NUR ---
RN CLOSING NOTES: PATIENT SLEEP IN BED COMFORTABLY, AROUSABLE TO VERBAL STIMULI, BED IN LOW POSITION CALL LIGHTS WITHIN REACH, NO COMPLAIN OF PAIN AND DISCOMFORT AT THIS TIME , ON ROOM AIR SATURATING WELL, WITH ONGOING IV AT LFA#20 WITH NSS@100ML/HR INFUSING WELL, PATIENT KEPT CLEAN AND DRY ALL NEEDS MET ENDORSE TO INCOMING SHIFT.
[2021-07-17 07:08] LABS: CALCIUM, SERUM 8.5 mg/dL (8.5-10.1); CREATININE 0.7 mg/dL (0.6-1.3); POTASSIUM 3.4 mmol/L (3.5-5.1)
--- NOTE | 2021-07-17 07:59 | NUR ---
RN OPENING NOTE PATIENT IN BED RESTING, AWAKE, A/O X3, CONFUSE AT TIMES. NO S/S OF PAIN NOTED AT THIS TIME. ON ROOM AIR, NO DISTRESS OR SHORTNESS OF BREATH NOTED. IV ACCESS LFA #20G, INTACT, PATENT AND FLUSHING WELL. FALL AND SAFETY MEASURES IN PLACE, BED ALARM ON, BED IN LOW AND LOCK POSITION, CALL LIGHT AND TABLE WITHIN EASY REACH, SIDE RAILS UP X2. WILL CONTINUE TO MONITOR
[2021-07-17] MEDS: AMLODIPINE BESYLATE 5 MG TABLET PO SCH (09:00)
[2021-07-17] MEDS: QUETIAPINE FUMARATE 25 MG TABLET PO SCH ×2 (09:00→17:07)
[2021-07-17] MEDS: POTASSIUM CL. PREMIX PERIPHER. 50 ML IV SCH ×4 (09:01→12:18)
[2021-07-17] MEDS: PANTOPRAZOLE 40 MG TABLET.DR PO SCH (09:03)
[2021-07-17] MEDS: TERAZOSIN HCL 5 MG CAPSULE PO SCH (17:08)
--- NOTE | 2021-07-17 18:51 | NUR ---
RN CLOSING NOTE PATIENT IN BED RESTING, AWAKE, A/O X 3, CONFUSE AT TIMES. NO S/S OF PAIN NOTED AT THIS TIME. ON ROOM AIR, NO DISTRESS OR SHORTNESS OF BREATH NOTED. IV ACCESS LFA #20G, NS @100 ML/HR, INTACT, PATENT AND FLUSHING WELL. ALL SCHEDULE MEDICATIONS ADMINISTERED. FALL AND SAFETY MEASURES IN PLACE, BED ALARM ON, BED IN LOW AND LOCK POSITION, CALL LIGHT AND TABLE WITHIN EASY REACH, SIDE RAILS UP X2. WILL ENDORSE TO FLATCAR WHACKER.
--- NOTE | 2021-07-17 19:19 | NUR ---
RN OPENING NOTE PATIENT IN BED RESTING, AWAKE, A/O X 3, CONFUSE AT TIMES. NO S/S OF PAIN NOTED AT THIS TIME. ON ROOM AIR, NO DISTRESS OR SHORTNESS OF BREATH NOTED. IV ACCESS LFA #20G, NS @100 ML/HR, INTACT, PATENT AND FLUSHING WELL. FALL AND SAFETY MEASURES IN PLACE, BED ALARM ON, BED IN LOW AND LOCK POSITION, CALL LIGHT AND TABLE WITHIN EASY REACH, SIDE RAILS UP X2. WILL CONTINUE TO MONITOR.
[2021-07-17 20:26] VITALS: BP 135/79
[2021-07-17] MEDS: ACETAMINOPHEN 325 MG TABLET PO PRN (21:22)
--- NOTE | 2021-07-17 21:49 | NUR ---
MS RN NOTES PRN TYLENOL GIVEN FOR MILD PAIN 2/3 ON PAIN SCALE. NOTED PT STILL IN CLOTHES FROM HOME ASKED PT IF WE WOULD LIKE TO CHANGE IN TO A HOSPITAL GOWN AND HAVE HIS LINEN CHANGED PT STATED "NO I DON'T WANT TO BE NAKED UNDER THE GOWN CAN YOU JUST CHANGE MY BLANKETS AND GET ME SOME ICE WITH [employer]". RISK AND BENEFITS EXPLAINED X3 PT REFUSED X3. BLANKETS CHANGED [employer] PROVIDED.WILL CONTINUE TO MONITOR.
[2021-07-18 04:00] VITALS: BP 132/68
--- NOTE | 2021-07-18 06:04 | NUR ---
MS RN NOTES PT STILL REFUSING TO HAVE LINEN CHANGED AND TO BE CHANGED INTO A GOWN AT THIS TIME PT STATED " NO IM OKAY LIKE THIS I DON'T WANT TO BE NAKED ANYWAYS IN LEAVING TODAY MOST LIKELY SO I WANT TO KEEP MY CLOTHES ON" SUGGESTED WE PUIT THE CLOTHE SIN A BELONGINGS BAG AND HE COULD CHANGE BACK WHEN ITS TIME FOR DISCHARGE PT REFUSED.X3 RISK AND BENEFITS X3 WILL CONTINUE TO MONITOR.
[2021-07-18 06:15] LABS: CALCIUM, SERUM 8.7 mg/dL (8.5-10.1); CARBON DIOXIDE 26 mmol/L (21-32); CHLORIDE 108 mmol/L (98-107); CREATININE 0.7 mg/dL (0.6-1.3); GLUCOSE 100 mg/dL (74-106); POTASSIUM 3.4 mmol/L (3.5-5.1); SODIUM SERUM 143 mmol/L (136-145); UREA NITROGEN, BLOOD 8 mg/dL (7-18)
--- NOTE | 2021-07-18 06:39 | NUR ---
RN CLOSING NOTE PATIENT IN BED RESTING, AWAKE, A/O X 3, CONFUSE AT TIMES. NO S/S OF PAIN NOTED AT THIS TIME. ON ROOM AIR, NO DISTRESS OR SHORTNESS OF BREATH NOTED. IV ACCESS LFA #20G, NS @100 ML/HR, INTACT, PATENT AND FLUSHING WELL. FALL AND SAFETY MEASURES IN PLACE, BED ALARM ON, BED IN LOW AND LOCK POSITION, CALL LIGHT AND TABLE WITHIN EASY REACH, SIDE RAILS UP X2. WILL ENDORSE CARE TO DAY SHIFT NURSE.
[2021-07-18 06:40] LABS: BASOPHILS % (AUTO) 0.9 % (0.0-2.0); HEMATOCRIT 36 % (39-51); HEMOGLOBIN 12.2 g/dL (13.5-17.5); LYMPHOCYTES # (AUTO) 1.3 K/uL (0.8-4.8); LYMPHOCYTES % (AUTO) 28.5 % (20.0-44.0); MEAN CORPUSCULAR HGB CONC 34 g/dl (31.0-36.0); MEAN CORPUSCULAR VOLUME 92 fL (80-96); MONOCYTES # (AUTO) 0.4 K/uL (0.1-1.30); MONOCYTES % (AUTO) 9.4 % (2.0-12.0); NEUTROPHILS # (AUTO) 2.5 K/uL (1.8-8.9); NEUTROPHILS % (AUTO) 56.2 % (43.0-81.0); PLATELET COUNT (AUTO) 172 K/uL (150-450); RED BLOOD CELL COUNT(AUTO) 3.92 MIL/uL (4.5-6.0); WHITE BLOOD COUNT (AUTO) 4.4 K/uL (4.3-11.0)
[2021-07-18 08:12] VITALS: BP 148/66
[2021-07-18 08:38] VITALS: BP 115/66
[2021-07-18] MEDS: QUETIAPINE FUMARATE 25 MG TABLET PO SCH (08:38)
[2021-07-18] MEDS: PANTOPRAZOLE 40 MG TABLET.DR PO SCH (08:38)
[2021-07-18] MEDS: AMLODIPINE BESYLATE 5 MG TABLET PO SCH (08:38)
[2021-07-18] MEDS ORDERED: POTASSIUM CHLORIDE 20 MEQ TAB.PRT.SR PO SCH (10:00)
[2021-07-18] MEDS ORDERED: Quetiapine Fumarate PO (10:18)
[2021-07-18] MEDS ORDERED: DONE5TAB7 PO (10:39)
--- NOTE | 2021-07-18 12:00 | NUR ---
RN NOTE PATIENT'S CALLED AND ASKED FOR PATIENT TO BE SHOWER AND SHAVE. RN AND METAL MODEL BUILDER TRIED X4 TIMES AND AT DIFFERENT TIMES TO CLEAN UP AND CHANGE PATIENT CLOTHE BUT PATIENT REFUSED EVERY TIME. PATIENT GOT MAD AT [facility] FOR CHANGING HIS BED BLANKET WHILE PATIENT WAS WALKING DURING PHYSICAL THERAPY, PATIENT HAS BEEN REFUSING TO BE CLEAN UP. WILL TRY AGAIN BEFORE PATIENT IS TRANSFER TO [facility].
--- NOTE | 2021-07-18 14:45 | NUR ---
PAINTER SPRAY NOTE PATIENT DISCHARGE IN MEDICAL STABLE CONDITION, A/O X3. V/S TAKEN, STABLE AND RECORDED. NO IV ACCESS. PATIENT REFUSED SKIN ASSESSMENT AND REFUSED TO BE CLEAN UP BEFORE LEAVING. NAME ARM BAND REMOVED. ALL BELONGINGS CHECKED AND SIGNED. HEALTH TEACHING AND DISCHARGE INSTRUCTIONS GIVEN TO PATIENT AND FRANCES AT [facility], VERBALIZED UNDERSTANDING. PATIENT LEFT UNIT VIA GURNEY WITH NO SIGNS OF DISTRESS, ACCOMPANIED BY PARAMEDICS. REPORT WAS GIVEN TO FRANCES AT [facility] VIA PHONE. PATIENT'S WAS CALLED AND INFORMED PATIENT WAS GOING TO BE TRANSFER TO [facility] AND AGREE WITH PLACEMENT. CHARGE NURSE AWARE OF DISCHARGE.
== END 2021-07-18 14:45 | DRG 682 ==
LOC: ER 08:49 → TRANSITION 11:59 → MED 19:11 → TELE 07-11 15:00 → MED 07-16 00:10
PROVIDERS: ADMIT Nurse Practitioner Family; ATTEND Nurse Practitioner Acute Care
DX: N17.9 Acute kidney failure, unspecified (principal); G93.41 Metabolic encephalopathy; E87.1 Hypo-osmolality and hyponatremia; E87.0 Hyperosmolality and hypernatremia; G90.8 Other disorders of autonomic nervous system; I10 Essential (primary) hypertension; N40.0 Benign prostatic hyperplasia without lower urinary tract symptoms; R62.7 Adult failure to thrive; Z20.822 Contact with and (suspected) exposure to COVID-19; R94.31 Abnormal electrocardiogram [ECG] [EKG]; Z79.899 Other long term (current) drug therapy; E87.6 Hypokalemia; E86.1 Hypovolemia; F39 Unspecified mood [affective] disorder; R73.9 Hyperglycemia, unspecified; E86.0 Dehydration; G89.29 Other chronic pain; W18.30XA Fall on same level, unspecified, initial encounter; Y92.009 Unspecified place in unspecified non-institutional (private) residence as the place of occurrence of the external cause; Z87.891 Personal history of nicotine dependence
CPT/HCPCS: 36415; 70450-TC; 70551-TC; 71045-TC; 80048-TC; 80061-TC; 80076-TC; 81001; 83605-TC; 83735-TC; 84100-TC; 84134-TC; 84443-TC; 84484-TC; 85025-TC; 85730-TC; 86850-TC; 87040-TC; 87081-TC; 87086-TC; 93307-TC; 93880-TC; 97112-TC; 97116-TC; C9803; G0378; J3480; J7030; J7050